=== PATIENT | male | born 1960 | race Caucasian/White ===

== ENCOUNTER 2022-06-26 14:47 | Outpatient (CLI) | payer OTHER, SELFPAY ==
--- NOTE | ~2022-06-26 | XR_ITS ---
EXAM: XR thoracic spine 2V DATE: 06/26/2022 15:21 HISTORY: M54.6 - Pain in thoracic spine, no recent injury . COMPARISON: None available. FINDINGS: Vertebral body alignment intact. Vertebral body heights preserved. Multilevel mild disc sp luzmaria narrowing and marginal osteophytosis. No traumatic malalignment or fracture. Visualized lung pare nchyma is clear. IMPRESSION: Multilevel mild thoracic degenerative disc disease. Reviewed, dictated and finalized at location K.
--- NOTE | ~2022-06-26 | XR_ITS ---
EXAM: XR lumbar spine 2-3V DATE: 06/26/2022 15:21 HISTORY: R52 - Pain, unspecified. Lower back pain no recent injury . COMPARISON: None available. FINDINGS: Mild lumbar scoliosis. 5 nonrib-bearing lumbar-type vertebral bodies. Pedicles intact. Norm al vertebral body alignment. Vertebral body heights preserved. Multilevel severe degenerative disc na rrowing and marginal osteophytosis. Vacuum phenomenon at all lumbar levels. Multilevel moderate facet sclerosis and hypertrophy, with interspinous narrowing. Aortic calcification without evident aneurys m. No fracture or dislocation. IMPRESSION: Multilevel severe degenerative lumbar disc disease. Multilevel moderate lumbar facet arth ropathy. Reviewed, dictated and finalized at location K. IMPRESSION: Multilevel severe degenerative lumbar disc disease. Multilevel mode rate lumbar facet arthropathy.
== END 2022-06-26 14:48 | disposition home or self-care (01) ==
PROVIDERS: PCP Emergency Medicine; Visit Provider Emergency Medicine
DX: M79.672 Pain in left foot (principal); M51.36 Other intervertebral disc degeneration, lumbar region; M51.34 Other intervertebral disc degeneration, thoracic region
CPT/HCPCS: 72070; 72100

== ENCOUNTER 2023-08-16 13:31 | Outpatient (CLI) | payer MEDICARE, OTHER, SELFPAY ==
--- NOTE | ~2023-08-16 | MR_ITS ---
EXAMINATION: MR cervical spine wo con DATE: 08/16/2023 14:52 INDICATION: Neck pain. TECHNIQUE: Magnetic resonance imaging (MRI) of the cervical spine was performed without intravenous c ontrast. COMPARISON: None FINDINGS: There is 2 mm retrolisthesis of C4 on C5, C5 on C6, and C6 on C7. Vertebral body heights ar e normal. There is moderately decreased disc height at C3-C4 and C4-C5 and severely decreased disc he ight at C5-C6 and C6-C7. The spinal cord signal intensity is normal. The following disc levels are sp ecifically discussed: C2-C3: There is a central protrusion. There is no uncovertebral joint osteoarthritis. There is modera te right and severe left facet joint osteoarthritis. There is mild left neural foraminal stenosis. Th ere is no central canal stenosis. C3-C4: The disc is bulging. There is severe bilateral uncovertebral joint osteoarthritis. There is mo derate bilateral facet joint osteoarthritis. There is mild bilateral neural foraminal stenosis. There is mild central canal stenosis. C4-C5: The disc is bulging. There is severe bilateral uncovertebral joint osteoarthritis. There is mi ld bilateral facet joint osteoarthritis. There is mild right and moderate left neural foraminal steno sis. There is moderate central canal stenosis with ventral and dorsal indentation of the spinal cord. C5-C6: The disc is bulging. There is severe bilateral uncovertebral joint osteoarthritis. There is mi ld bilateral facet joint osteoarthritis. There is mild bilateral neural foraminal stenosis. There is moderate central canal stenosis with ventral and dorsal indentation of the spinal cord. C6-C7: The disc is bulging. There is severe bilateral uncovertebral joint osteoarthritis. There is mo derate bilateral facet joint osteoarthritis. There is moderate right and mild left neural foraminal s tenosis. There is mild central canal stenosis. C7-T1: The disc does not extend beyond the endplate margin. There is no uncovertebral joint osteoarth ritis. There is moderate bilateral facet joint osteoarthritis. There is mild left neural foraminal st enosis. There is no central canal stenosis. IMPRESSION: 1. Severe cervical spondylosis. Reviewed, dictated and finalized at location A.
--- NOTE | ~2023-08-16 | MR_ITS ---
EXAMINATION: MR lumbar spine wo con DATE: 08/16/2023 14:54 INDICATION: Nontraumatic low back pain TECHNIQUE: Magnetic resonance imaging (MRI) of the lumbar spine was performed without intravenous con trast. Sequences included sagittal T2-weighted FSE, sagittal T2-weighted FS FSE, sagittal T1-weighted FSE, and axial T2-weighted FSE. COMPARISON: None FINDINGS: Minimal upper lumbar dextrocurvature and lower lumbar levocurvature. 2 mm retrolisthesis L2 on L3. Ve rtebral body heights are normal. Severe disc height loss with fibrofatty and fibrovascular degenerati ve endplate changes at L2-L3 and at the right side of L4-L5. Moderate disc height loss at L1-L2 and L 3-L4. Mild disc height loss at L5-S1. Bone marrow signal is otherwise normal. The conus medullaris te rminates at cephalad aspect of L1. There is normal signal in the caudal spinal cord. Paravertebral so ft tissues are unremarkable. The following disc levels are specifically discussed: T12-L1: Disc is mildly bulging. There is moderate bilateral facet joint osteoarthritis. There is no n eural foraminal stenosis. There is mild central canal stenosis. L1-L2: Disc is bulging with annular fissure and small inferiorly extending disc extrusion which moder ately narrows the left lateral recess extending 1 cm below level of the superior endplate of L2 and m easuring 8 x 5 mm in maximal transaxial dimensions. There is moderate bilateral facet joint osteoarth ritis. There is moderate left and mild to moderate right neural foraminal stenosis. There is mild felice tral canal stenosis. L2-L3: Disc is bulging with annular fissure. There is moderate bilateral facet joint osteoarthritis. There is moderate left and mild to moderate right neural foraminal stenosis. There is moderate centra l canal stenosis along with moderate narrowing of the left and right lateral recesses. L3-L4: Disc is bulging. There is moderate left and moderate to severe right facet joint osteoarthriti s. There is moderate right and mild to moderate left neural foraminal stenosis. There is mild central canal stenosis along with moderate narrowing of the left and right lateral recesses. L4-L5: Disc is bulging. There is mild left and moderate right facet joint osteoarthritis. There is mo derate left and moderate to severe right neural foraminal stenosis. There is mild central canal steno sis with narrowing of the lateral recesses, moderate on the right and mild on the left. L5-S1: Disc is bulging. There is severe bilateral facet joint osteoarthritis. There is moderate right and moderate left neural foraminal stenosis. There is no central canal stenosis. IMPRESSION: 1. Severe lumbar spondylosis. Reviewed, dictated and finalized at location A.
== END 2023-08-16 13:32 | disposition home or self-care (01) ==
PROVIDERS: PCP Emergency Medicine; Visit Provider Emergency Medicine
DX: M47.816 Spondylosis without myelopathy or radiculopathy, lumbar region (principal); M47.812 Spondylosis without myelopathy or radiculopathy, cervical region
CPT/HCPCS: 72141; 72148

== ENCOUNTER 2023-11-12 09:53 | Day surgery (SDC) | payer MEDICARE, OTHER, SELFPAY ==
[2023-10-31 13:26] VITALS: BMI 25.1
--- NOTE | ~2023-11-12 | XR_ITS ---
EXAMINATION: XR fluoroscopy no charge DATE: 11/12/2023 11:55 CDT INDICATION: THADDEUS L3-4,L4-5 TRANSFORAMINAL EPI INJ . TECHNIQUE: 9 fluoroscopic images of the lumbar spine were obtained during bilateral L3-4 and L4-5 tra nsforaminal epidural injections, performed by Jarvis Guadalupe MD. I was not present during the proce dure. Fluoroscopy exposure time was 25.3 seconds. Air Kerma 5.20 mGy. COMPARISON: None FINDINGS/IMPRESSION: Fluoroscopic documentation of bilateral L3-4 and L4-5 transforaminal epidural injections. Please refe r to the operative note for complete procedural details . Reviewed, dictated and finalized at location K.
[2023-11-12 11:16] VITALS: BMI 25.0
[2023-11-12 11:21] VITALS: BP 138/97; PULSE 64; RESP 20; TEMP 37; O2SAT 100
--- NOTE | 2023-11-12 11:45 | WPDHPUPDATE1 ---
History and Physical Update Update Date/Time: 11/12/23 11:45 History and Physical has been reviewed, including an updated exam of the patient. There are NO changes in the patient's condition. Risks, benefits, and alternatives have been discussed and questions answered. Patient agrees to proceed with procedure.
--- NOTE | 2023-11-12 11:46 | W.PM.PROC2 ---
Procedure Note - Detailed Date of Procedure 11/12/23 Pre-op Diagnosis Lumbosacral Radiculopathy Post-op Diagnosis Same Procedure Performed bilateral Lumbar Transforaminal Epidural Steroid Injection under Fluoroscopic Guidance and with Contrast Control at L4-5, L5-S1. Surgeon Jarvis Guadalupe MD Anesthesia Local Description of Procedure INFORMED CONSENT: Risks, benefits and alternatives to the procedure were discussed in detail with the patient who expressed explicit understanding and consent to proceed. Patient was informed verbally and in written form regarding the risks associated with the procedure including the low risk of serious infection, bleeding/bruising, allergic reaction, nerve or organ injury, paralysis, procedural site pain or discomfort, worsening pain and/or mobility, failure to treat and/or disfigurement. The patient expressed explicit understanding and consent to proceed. All materials required for the procedure were available prior to procedure start. Site and side was marked prior to procedure and confirmed in the presence of the patient. PROCEDURE IN DETAIL: The patient was brought to the procedural suite and placed in the prone position. Patient was made comfortable with use of pillows under the head/chest, hips and ankles. Skin overlying the injection site was prepared broadly with ChloraPrep applicator and draped in a sterile manner. Aseptic technique was employed throughout. The endplates of the vertebral body at the site of interest were aligned in the AP view. Ipsilateral oblique angulation was utilized to better visualize the neuroforamen of interest. Local anesthesia was established by infiltration with approximately 5 mL of 2% lidocaine via a 1-1/2 inch 27-gauge needle. A 22-gauge 3.5 inch Niesha (pencil point) spinal needle was advanced until the needle approached the 6 o'clock position on the pedicle just superior to the exiting nerve root. on the right at L4-5. Lateral view was utilized to confirm appropriate position of the needle tip within the superior and posterior portion of the respective foramen. In an AP view, 0.25 mL of Dotarem contrast medium was injected after negative aspiration for CSF, blood or other bodily fluid, showing appropriate neurogram without evidence of intravascular or intrathecal spread of contrast. Digital subtraction imaging was used with an additional 0.25ml of the same contrast medium to confirm absence of intravascular contrast spread. A 1mL solution containing 3 mg of betamethasone into 2.0% preservative-free lidocaine was injected after negative repeat aspiration. Appropriate spread of the injectate was confirmed with washout of previously injected contrast. No parasthesias were elicited. Needle was removed completely intact without difficulty. The same exact procedure was repeated for all remaining levels on the ipsilateral side, right L3-4 neural foramen, modified as necessary to accommodate for the new target location with identical findings and results and no evidence of complication. The same exact procedure was repeated for all remaining levels on the contralateral side, left L3-4, L4-5 neural foramen, modified is necessary to accommodate for the new target location on contralateral side with identical findings and results with no evidence of complication. Images were saved and documented in the patient chart. Patient's skin was cleaned and sterile bandage applied. The patient tolerated the procedure well. The patient was transported to the recovery area in stable condition where they were observed for an appropriate amount of time prior to discharge, without evidence of complication. The patient was instructed to avoid excessive activity for the next 48 hours, including climbing and frequent use of stairs. Showers only for 48 hours. They were instructed not to drive or operate heavy machinery for 24 hours. They are to monitor for severe headaches, fevers, chills, night sweats, erythema/
--- NOTE | 2023-11-12 11:55 | SUR.PREOP ---
2561 Dr Pereira asked this RN to remove gadolinium contrast. Dr pereira states pt has never been exposed to that contrast.
[2023-11-12 11:59] VITALS: BP 154/90; PULSE 61; RESP 20; O2SAT 97
[2023-11-12 12:05] VITALS: BP 141/88; PULSE 57; RESP 20; O2SAT 100
[2023-11-12 12:10] VITALS: BP 141/91; PULSE 58; RESP 20; O2SAT 100
[2023-11-12] MEDS: BETAMETHASONE SODIUM PHOSPHATE PF INJ 6 MG/ML VIAL 12 MG INFILTRATE (12:11)
[2023-11-12] MEDS: LIDOCAINE HCL 2% PF INJ 5 ML VIAL 2 ML INFILTRATE (12:11)
[2023-11-12] MEDS: LIDOCAINE HCL 1% PF INJ 5 ML VIAL 2 ML AFFCTD EYE (12:11)
[2023-11-12 12:16] VITALS: BP 136/97; PULSE 64; RESP 18; O2SAT 100
--- NOTE | 2023-11-12 12:40 | SUR.PHASEII ---
1220; DR RAMIREZ NOTIFIED OF PT'S C/O SOME NUMBNESS TO RT ANKLE/FOOT . PT DOES HAVE SENSATION TO TOUCH TO RT ANKLE/FOOT. DR RAMIREZ STATED ITS FROM THE LOCAL ANESTHETIC INJECTED IN THE BACK,. PT AND SPOUSE MADE AWARE.
--- NOTE | 2023-12-20 10:20 | PC.NURSE ---
Pt scheduled for procedure with Dr. Guadalupe 12/24/23. Pre op testing was completed by pt on 12/16/23 with exception of PT/INR and PTT. Intrinsic-ID showed these tests cancelled. Contacted lab and was informed pt declined these labs as they were not covered by Medicare and he would be charged. Contacted Mayte at Dr. Guadalupe's office 12/19/23 to inform/send Dr. Guadalupe a message re above and see if pt this was OK with Dr. Guadalupe or if the pt did need these labs. Mayte returned my call 12/20/[address] Guadalupe's response which was that If pt is not on an anticoagulant and has no history of easy bleeding/bruising then PT/INR and PTT can be omitted. Called pt and he confirmed no anticoagulant or history of easy bleeding/bruising.
== END 2023-11-12 12:33 | disposition home or self-care (01) ==
PROVIDERS: PCP Emergency Medicine; Visit Provider Anesthesiology Pain Medicine
PROC: (CPT 64483; principal; 2023-11-12 11:15)
DX: M54.17 Radiculopathy, lumbosacral region (principal)
CPT/HCPCS: 64483 ×2; 99199

== ENCOUNTER 2023-12-16 12:22 | Outpatient (CLI) | payer MEDICARE, OTHER, SELFPAY ==
--- NOTE | ~2023-12-16 | XR_ITS ---
EXAMINATION: XR chest 2V Exam Date/Time: 12/16/2023 13:05 CDT HISTORY: PRE-OP EXAMINATION, HX SMOKING, NO CHEST COMPLAINTS Comparison: 10/05/2009. RESULT: Lines, tubes, and devices: None. Lungs and pleura: Increased volumes. Hemidiaphragm flattening and increased AP diameter. Bibasilar sc arring. No focal consolidation, pleural effusion, or pneumothorax. Cardiomediastinal silhouette: Stable. Dilated central pulmonary arteries. Other: No acute osseous or upper abdominal finding. IMPRESSION: No acute cardiopulmonary process. Emphysematous change. Findings suggestive of pulmonary arterial hyp ertension. Reviewed, dictated and finalized at location K. IMPRESSION: No acute cardiopulmonary process. Emphysematous change. Findings suggestive of pulmonary arterial hypertension.
--- NOTE | 2023-12-16 12:50 | ECG_ITS ---
Test Date: 2023-12-16 12:55:50 Measurements Intervals Polaris Rate: P: NV: QRS: QRSD: T: QT: QTc: Interpretive Statements SINUS RHYTHM ANTEROSEPTAL INFARCT, AGE INDETERMINATE BASELINE ARTIFACT- V4-V6 ABNORMAL ECG Electronically Signed On 12-16-2023 14:29:08 CDT by Edmar Garcia D.O.
[2023-12-16 13:18] LABS: Hematocrit 46.2 % (42.0-52.0); Hemoglobin 15.9 g/dL (14.0-18.0); Mean Corpuscular HGB Conc 34.4 g/dl (32-36); Mean Corpuscular Hemoglobin 32.4 pg (26-34); Mean Corpuscular Volume 94.1 fl (80-100); Mean Platelet Volume 10.5 fl (7.4-10.4); Platelet Count Result 212 k/mm3 (150-375); Red Blood Count 4.91 M/mm3 (4.6-6.20); Red Cell Distribution Width 12.8 % (11.5-14.5); White Blood Count 9.7 K/mm3 (4.5-10.0)
[2023-12-16 13:28] LABS: Alanine Aminotransferase 30 U/L (6-50); Albumin Level 4.3 g/dL (3.5-5.1); Alkaline Phosphatase 77 U/L (38-126); Anion Gap 8 mmol/L (4-12); Aspartate Amino Transferase 33 U/L (17-59); Bilirubin,Total 0.4 mg/dL (0.2-1.3); Blood Urea Nitrogen 18 mg/dL (9-20); Calcium 9.1 mg/dL (8.4-10.2); Carbon Dioxide 28 mmol/L (22-30); Chloride 102 mmol/L (98-107); Estimated Glomerular Filt Rate > 60; Glucose 97 mg/dL (65-110); Potassium 3.3 mmol/L (3.4-5.0); Sodium 138 mmol/L (137-145)
== END 2023-12-16 12:23 | disposition home or self-care (01) ==
PROVIDERS: PCP Emergency Medicine; Visit Provider Anesthesiology Pain Medicine
DX: Z01.818 Encounter for other preprocedural examination (principal); R94.31 Abnormal electrocardiogram [ECG] [EKG]
CPT/HCPCS: 36415; 71046; 80053; 85027; 93005

== ENCOUNTER 2023-12-24 05:51 | Day surgery (SDC) | payer MEDICARE, OTHER, SELFPAY ==
[2023-12-06 11:31] VITALS: BMI 25.1
--- NOTE | 2023-12-23 17:09 | WPDANESEPPF ---
Anes - Initial Pre Proc Eval Procedure: Operation Date: 12/24/23 07:30 Proposed Procedures p Bilateral L3-4, L4-5 Minimally Invasive Lumbar Decompression under Fluoroscopic Guidance, Possible Epidurogram - Jarvis Guadalupe MD Date/Time: 12/23/23 17:09 Surgeon: Jarvis Guadalupe MD Pre Op Diagnosis: Lumbar Stenosis Patient Data Age: 63 Gender: M Height: 1.83 m Weight: 84 kg Allergies Allergy/AdvReac Type Severity Reaction Status Date / Time Iodinated Contrast Media Allergy Intermediate Vomiting Verified 12/24/23 06:14 Home Medications Medication Instructions Recorded Confirmed Type aspirin 81 mg chewable tablet 81 mg PO DAILY PRN Back Pain 10/31/23 12/24/23 History naproxen sodium 220 mg tablet 800 mg PO DAILY PRN Pain 10/31/23 12/24/23 History (Aleve) carisoprodol 250 mg tablet (Soma) 250 mg PO TID PRN muscle pain #30 11/12/23 12/24/23 Rx tabs hydrocodone 5 mg-acetaminophen 325 1 tablet PO Q6-8H PRN pain 7 days 12/24/23 Rx mg tablet #20 tabs Patient hx anesthesia problems: none Family hx anesthesia problems: none Results Review: All pre-operative results and documents have been reviewed as part of the pre-operative evaluation. [facility] Past Medical History Medical History (Updated 12/24/23 @ 06:27 by Jarvis Guadalupe MD) Arthritis Atrial fibrillation Callus between toes Chronic pain Compound fracture (~1986) Foot pain, left Thyroid disorder Surgical History Surgical History H/O cardiac radiofrequency ablation (~2015) Family History Family History Other Alcoholism Leukemia Social History Social History Smoking packs per day: 1 Smoking cigarettes per day: 20.0 Years smoked: 50 Smoking pack-years: 50.00 Smoking status: Former smoker Tobacco type: cigarettes Second hand tobacco smoke exposure: Yes Alcohol intake: never Substance use: never Substance use type: does not use Do You Feel Safe in your Home?: Yes Lack of Transportation: No Lack of Food: Never True Current Housing: I Have Housing Concerned About Future Housing: No Difficulty Paying Gas/Electric Bills: No Difficulty Paying for Meds: No Currently Unemployed: No Education: Master's Degree or Higher Difficulty w/ Childcare or Family Care: No Living arrangements: with family Gender identity (if verbalized by the patient): Male Sexual Orientation (if Verbalized by the Patient): Straight or Heterosexual Spiritual care concerns: No Anes - Eval Final PreProcedure Day of Procedure 12/23/23 17:09 Patient weight: overweight Heart: regular rate and rhythm Lungs: clear to auscultation Airway: Mallampati scale class II Neurological: alert and oriented Last oral intake: >/= 8 hours ASA classification: III Emergent: no Anesthetic plan: proceed Anesthesia type and monitoring: general ETT and standard monitoring Results Review: All pre-operative results and documents have been reviewed as part of the pre-operative evaluation. Informed Consent: The patient's anesthetic plan and its attendant risks and benefits were discussed with the patient/family/POA. Questions were solicited and answers provided to the satisfaction of the patient/family/POA.
--- NOTE | ~2023-12-24 | XR_ITS ---
EXAMINATION: XR fluoroscopy no charge DATE: 12/24/2023 08:29 INDICATION: Lumbar spinal stenosis with neurogenic claudication. TECHNIQUE: 20 intraoperative fluoroscopic views of the lumbar spine were obtained. I was not present. Fluoroscopy exposure time was 138 seconds. COMPARISON: None. FINDINGS: There is severe lumbar spondylosis. Instruments overlie the lumbar spine for lumbar decompr ession. IMPRESSION: 1. Severe lumbar spondylosis. Reviewed, dictated and finalized at location A.
[2023-12-24 06:15] VITALS: BP 105/75; PULSE 65; RESP 16; TEMP 36.6; O2SAT 96
[2023-12-24] MEDS: LACTATED RINGERS 1,000 ML 30 ML IV CONT (06:24)
--- NOTE | 2023-12-24 06:24 | WPDHPUPDATE1 ---
History and Physical Update Update Date/Time: 12/24/23 06:24 History and Physical has been reviewed, including an updated exam of the patient. There are NO changes in the patient's condition. Risks, benefits, and alternatives have been discussed and questions answered. Patient agrees to proceed with procedure.
--- NOTE | 2023-12-24 06:31 | W.PM.PROC2 ---
Procedure Note - Detailed Date of Procedure 12/24/23 Pre-op Diagnosis Lumbar Spinal Stenosis w/ Neurogenic Claudication Post-op Diagnosis Same Procedure Performed Bilateral Minimally Invasive Lumbar Decompression (MILD) at L3-4, L4-5 under Fluoroscopic Guidance. Surgeon Jarvis Guadalupe MD Bi Tri Operator None Anesthesia Other ([Moderate IV sedation/MAC] with local anesthetic infiltration in the prone position) Description of Procedure INFORMED CONSENT: Risks, benefits, and alternatives to the procedure were discussed in detail with the patient who expressed explicit understanding and consent to proceed. Risks discussed with the patient included but were not limited to risk of serious local or systemic infection, bleeding/bruising, epidural hematoma, dural puncture or tear resulting in CSF leak and acute or chronic post-dural puncture headache, scarring/deformity, immediate or delayed allergic reaction, decreased mobility, failure to treat pain, inadvertent neurologic injury resulting in increased pain, weakness/paralysis or numbness, inadvertent organ injury, need for additional surgery, allergic reaction, heart attack, stroke, seizure, coma, . Anesthetic risks were also briefly discussed by myself and the refrigeration engine operator. The patient expressed understanding and consent to proceed, agreeing that potential benefits outweigh risk of harm. All materials required for the procedure were immediately available prior to procedure start. Site and side were confirmed with the patient, compared carefully to the patient chart and consent, and marked prior to transport to the operating room. Appropriate time out procedure was performed per protocol prior to procedure start. PROCEDURE IN DETAIL: The patient was brought to the operative suite and placed in the supine position. Appropriate ASA standard monitors were attached. Anesthesia was initiated without difficulty or event. Eyes were protected. Patient was transitioned to the prone position. Pressure points were padded with joints in neutral position. When appropriate, breasts and genitals were evaluated and protected. Eyes were checked and were free from undue pressure. Skin overlying the procedure site was marked with sterile marker. Surgical area was prepared in a typical sterile fashion with ChloraPrep and allowed to dry for at least 3 minutes prior to sterilely draping the surgical site. The lumbar spine was identified in the AP fluoroscopic view with slight cephalad tilt perfectly aligning the endplates at the targeted levels with spinous processes bisecting the transpedicular plane. After identifying the intended incision site approximately 1.5 levels inferior to the level of interest, the area was anesthetized by infiltration with no more than 10ml of a 1:1 admixture of 0.5% PF bupivacaine with epinephrine and 2% PF lidocaine with epinepherine via a 27-gauge needle after negative aspiration. A 22-gauge spinal needle was used to provide additional and adequate local anesthesia to the level of the interspinous ligament, ligamentum flavum and the periosteum of the lamina at the intended treatment levels. In the AP view, a #11 scalpel blade was used to create a single stab incision at the intended incision site on the targeted side. The Vertos MILD kit was opened and the included cannula and trocar assembly was advanced through the incision to contact the midportion of the right lamina just adjacent to the spinous process at L5. Once seated, the lateral view was used to gauge depth demonstrating the most anterior tip of the trocar posterior to the epidural space at all times. The food service supervisor-provided cannula stabilizer was placed over the trocar flush to the patient's lumbar flank. Cannula obturator with handle was removed. Included depth guide was then attached to the insertion port on the cannula and set to an intitial depth of 15 mm. The bone rongeur was advanced to the depth of the lumbar lamina at the target
[2023-12-24] MEDS: ceFAZolin SODIUM 2 GM/20 ML SW SYRINGE IV PUSH (07:39)
[2023-12-24] MEDS: LIDOCAINE HCL 2% PF INJ 5 ML VIAL INFILTRATE (07:55)
[2023-12-24] MEDS: BUPIVACAINE/EPINEPHRINE 0.5% 10 ML VIAL 5 ML INFILTRATE (07:55)
[2023-12-24 08:36] VITALS: BP 135/88; PULSE 65; RESP 14; TEMP 36.2; O2SAT 97
[2023-12-24 08:50] VITALS: BP 139/90; PULSE 65; RESP 16; O2SAT 100
--- NOTE | 2023-12-24 08:57 | SUR.PHASEI ---
PT AWAKE AND ALERT. TALKATIVE. DENIES PAIN. SHAVONNE
--- NOTE | 2023-12-24 09:01 | SUR.PHASEI ---
PT SITTING UPRIGHT, EATING ICE CHIPS, TALKATIVE.
[2023-12-24 09:05] VITALS: BP 126/87; PULSE 65; RESP 16; O2SAT 97
[2023-12-24 09:10] VITALS: BP 123/88; PULSE 64; RESP 16; O2SAT 100
[2023-12-24 09:30] VITALS: BP 122/83; PULSE 64; RESP 16; O2SAT 99
--- NOTE | 2023-12-24 09:35 | WPDANESPN ---
Anes - Prog Note Post-Op Date/Time: 12/24/23 09:35 Cardiovascular status: normal Respiratory status: normal Airway patency: baseline Mental status: baseline Post-Op hydration status: normal Vital Signs: Last Vital Signs Temp 36.2 C L 12/24/23 08:36 Pulse 64 12/24/23 09:10 Resp 16 12/24/23 09:10 BP 123/88 12/24/23 09:10 Pulse Ox 100 12/24/23 09:10 O2 Del Method Room Air 12/24/23 09:10 O2 Flow Rate 6 12/24/23 08:50 Pain Score (VAS): 0 I/O: Intake & Output 12/23/23 12/24/23 12/24/23 23:59 07:59 15:59 Intake Total 100 Balance 100 Post-procedural complaints: none Patient Feedback: Patient satisfied with anesthetic care. Other Findings: Patient vital signs back to baseline. Patient denies nausea and vomiting. Patient's pain under control. Patient OK for discharge.
== END 2023-12-24 09:44 | disposition home or self-care (01) ==
PROVIDERS: PCP Emergency Medicine; Visit Provider Anesthesiology Pain Medicine
PROC: (CPT 0275T; principal; 2023-12-24 07:30)
DX: M48.062 Spinal stenosis, lumbar region with neurogenic claudication (principal); Z00.6 Encounter for examination for normal comparison and control in clinical research program
CPT/HCPCS: 0275T; 99199

== ENCOUNTER 2024-02-03 08:12 | Outpatient (CLI) | payer MEDICARE, OTHER, SELFPAY ==
[2024-02-03 09:29] LABS: Hematocrit 49.1 % (42.0-52.0); Hemoglobin 17.2 g/dL (14.0-18.0); Mean Corpuscular Hemoglobin 32.5 pg (26-34); Mean Corpuscular Volume 92.8 fl (80-100); Mean Platelet Volume 10.4 fl (7.4-10.4); Platelet Count Result 221 k/mm3 (150-375); Red Blood Count 5.29 M/mm3 (4.6-6.20); White Blood Count 7.9 K/mm3 (4.5-10.0)
[2024-02-03 09:44] LABS: Alanine Aminotransferase 30 U/L (6-50); Albumin Level 4.7 g/dL (3.5-5.1); Alkaline Phosphatase 86 U/L (38-126); Anion Gap 8 mmol/L (4-12); Aspartate Amino Transferase 35 U/L (17-59); Bilirubin,Total 0.6 mg/dL (0.2-1.3); Blood Urea Nitrogen 17 mg/dL (9-20); Calcium 9.7 mg/dL (8.4-10.2); Carbon Dioxide 30 mmol/L (22-30); Chloride 102 mmol/L (98-107); Estimated Glomerular Filt Rate > 60; Glucose 101 mg/dL (65-110); Potassium 4.6 mmol/L (3.4-5.0); Sodium 140 mmol/L (137-145)
[2024-02-03 11:20] LABS: Prothrombin Time 13.9 Seconds (11.1-14.7)
[2024-02-03 11:21] LABS: Partial Thromboplastin Time 31.7 Seconds (22.3-36.8)
== END 2024-02-03 08:13 | disposition home or self-care (01) ==
PROVIDERS: PCP Emergency Medicine; Visit Provider Anesthesiology Pain Medicine
DX: Z01.818 Encounter for other preprocedural examination (principal)
CPT/HCPCS: 36415; 80053; 85027; 85610; 85730

== ENCOUNTER 2024-02-04 05:56 | Day surgery (SDC) | payer MEDICARE, OTHER, SELFPAY ==
[2024-02-04] VITALS (7 sets, daily range): BP systolic 112–151; BP diastolic 78–100; PULSE 54–63; RESP 11–18; TEMP 35.8–36.4; O2SAT 95–100
--- NOTE | ~2024-02-04 | XR_ITS ---
EXAMINATION: XR fluoroscopy no charge DATE: 02/04/2024 7:25 CDT INDICATION: PERC TRANSPEDICULAR INTRAOSSEOUS BASIVERTEBRAL NERVE ABLATIO . TECHNIQUE: 53 fluoroscopic images and 13 cine clips of the lumbar spine were obtained during percutan eous transpedicular intraosseous base the vertebral nerve ablation, performed by Jarvis Guadalupe MD. I was not present during the procedure. Fluoroscopy exposure time was 126 seconds. Air Kerma 52.10 m Gy. COMPARISON: None FINDINGS/IMPRESSION: Fluoroscopic documentation of percutaneous transpedicular intraosseous base the vertebral nerve ablat ion. Please refer to the operative note for complete procedural details . Reviewed, dictated and finalized at location K.
--- NOTE | 2024-02-04 04:39 | WPDHPUPDATE1 ---
History and Physical Update Update Date/Time: 02/04/24 04:39 History and Physical has been reviewed, including an updated exam of the patient. There are NO changes in the patient's condition. Risks, benefits, and alternatives have been discussed and questions answered. Patient agrees to proceed with procedure.
--- NOTE | 2024-02-04 04:42 | P.OP_ITS ---
Procedure Note - Detailed Date of Procedure 02/04/24 Pre-op Diagnosis Vertebrogenic Low Back Pain Post-op Diagnosis Same Procedure Performed Percutaneous transpedicular intraosseous basivertebral nerve thermal radiofrequency ablation (Intracept procedure) at L2, L3, L4, L5 under fluoroscopic guidance. Surgeon Jarvis Guadalupe MD Immigration Paralegal None. Anesthesia General (GETA] in the [prone] position with infiltration of local anesthetic. 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 They are significantly limited in their daily and/or work-related activities as a result, including sitting, standing, lifting/carrying and sleeping, with failure to respond to and/or tolerate extensive efforts at more conservative management (i.e. oral and topical analgesics including NSAIDs, acetaminophen and opioids, Physical Therapy and modalities, time/rest, interventional procedures/corticosteroid injections) for greater than 6 months prior to today's procedure establishing medical necessity for this well-studied and FDA-approved pain-relieving procedure. INFORMED CONSENT: Procedure was discussed in detail with the patient at a previous visit and at the time of surgery. During this discussion, the risks, benefits, and alternatives to the procedure, including doing nothing, were thoroughly described to the patient, who expressed explicit understanding and consent to proceed. Specific risks discussed with the patient included, but were not limited to the risk of serious local or systemic infection, skin burn/scarring, major or minor bleeding/bruising, allergic reaction to medi cations or materials, inadvertent lung or other organ injury, new or worsening spinal fracture, inadvertent thermal or mechanical nerve or spinal cord injury resulting in increased pain, weakness, numbness or loss of bowel or bladder control, the need for repeat or additional surgery, inadvertent dural puncture resulting in acute or chronic CSF leak and post-dural puncture headache, failure to treat pain, and risks associated with general anesthesia in the prone position including eye, dental, joint, nerve, spine or soft tissue injury/pain related to positioning, heart attack, respiratory failure, aspiration, pneumonia, DVT/PE or thrombosis, hemorrhagic or ischemic stroke, hypoxia, hypo- or hypertension, seizure, coma and . Patient understands these risks and agrees that the opportunity for benefit outweighs the potential risk of harm. Procedure specific informed consent form was read, reviewed, signed by the patient and surgeon and witnessed in the pre-operative area. All pertinent questions were asked and answered to the patient's satisfaction. Surgical site was pre-treated with chlorhexidine wipes. All materials required for the procedure were available and site and side of procedure was marked prior to procedure start. Appropriate timeout was conducted by all participants in the OR (patient's ID, procedure to be performed, procedure site and side, allergies and appropriate medications including pre-operative antibiotics were verified) prior to incision. PROCEDURE IN DETAIL: After full informed consent and adequate IV access was obtained without difficulty; the patient was escorted to the procedural suite. ASA standard monitors were applied and utilized throughout the case. Prophylactic antibiotics were administered prior to procedure start. GETA was initiated without difficulty or event. Eyes were protected. Patient was converted to the prone position in optimal flexion using pillows under the abdomen, hips and ankles. Pressure points were padded, cervical spine and joints were placed in neutral position. Eyes, breasts and genitals were evaluated and protected as appropriate. The thoracolumbar spine to the sacrum was prepared in the usual manner using alcohol scrub followed by broad application of ChloraPrep, and allowed to dry completely for over 3 minutes. Surgical site and C-arm was sterilely draped in the typical fashion. Aseptic technique and strict fluoroscopic guidance was utilized throughout. Fluoroscope was moved into position to visualize the vertebral bodies of interest in the AP and lateral plane, obtaining true linear projections of the endplates at each level, and was rotated in the ipsilateral oblique view approximately 35 degrees from true AP to visualize the vertebrae with respective ipsilateral facet joints visualized bisecting the superior disk space at the midpoint of the vertebral body. The superolateral border of the pedicle of each level treated was identified. After adequate general anesthesia was confirmed, the skin entry point was located and infiltrated with an adequate amount of a 1:1 admixture of 0.5% preservative free bupivacaine and 2.0% preservative-free lidocaine using a 27 gauge 1.5-inch hypodermic needle after negative aspiration for blood or bodily fluid. Appropriate introducer cannula trajectory was identified in the AP, oblique and lateral views, and local anesthesia was extended to periosteum in a similar fashion at each level treated using a 3.5 inch, 22-gauge Quincke spinal needle. A stab skin decision was made with a #11 scalpel blade and an 8-gauge introducer cannula with beveled tip was then introduced through the skin, subcutaneous tissue and paraspinal muscle until contact was made with the bony surface of the pedicle at the target level. Appropriate position was confirmed in both the AP and lateral views. Using a 24- ounce surgical mallet, the trocar was advanced through the right pedicle to the posterior aspect of the vertebral body using a combination of AP and lateral views to ensure appropriate travel through the pedicle without breach of its medial wall or entry into the epidural/neuroforaminal space. Once the trocar had entered the posterior aspect of the L5 vertebral body, the trocar was removed from the cannula and the curved cannula assembly was inserted followed by replacement of the original straight stylette with the Nitinol J ? stylette without difficulty. The wingnut on the device was rotated counterclockwise to its endpoint permitting excursion of the J ? stylette. The curved cannula assembly was then advanced under intermittent fluoroscopic guidance, using the surgical mallet, in 1 to 2 mm increments with observed travel anteriorly and medially through the vertebral body in both the AP and lateral views. When necessary, the J-stylette was intermittently removed and replaced with the straight stylette during advancement to reach the basivertebral nerve target near the center point of the vertebral body. Target was reached when the tip of the stylette was noted to be a minimum of 1 cm anterior to the posterior wall and approximately 30 to 50% of the posterior to anterior diameter of the targeted vertebral body and at the midpoint of the distance between the superior and inferior endplates, with tip of the stylette crossing midline as represented by the spinous process in the carefully aligned AP projection. J- stylette was then removed and the bipolar radiofrequency probe was connected to the generator and inserted into the introducer cannula until the proximal and distal electrodes straddled the midpoint of the vertebral body. The wingnut was then rotated clockwise to retract the PEEK sleeve and expose the proximal electrode on the radiofrequency probe. The basivertebral nerve was then ablated through activation of the probe and generator. At each level treated, ablation was performed at 85 degrees centigrade for 7 minutes using [facility]'s RFG standard intraosseous ablation algorithm while simultaneously monitoring for any sign of motor or sensory nerve stimulation. While ablative lesioning was progressing to completion at the initial level, the fluoroscope was adjusted to successively visualize the target of entry at the superolateral aspect of the pedicle at each additional level treated, ( L2, L3, L4), with each vertebral body subsequently and sequentially accessed and target nerve ablated in a similar manner modified only to accommodate for specific level, location and anatomical variation, alternating the site and side of entry to facilitate cannula placement. This was achieved in all cases without difficulty. Location of each entry point, final cannula and probe position was documented by fluoroscopy in the AP and lateral views with respective images recorded in the patient's chart. In all cases, once intraosseous access was obtained, needle tip remained intraosseous without violation of the pedicular wall, vertebral wall, neuroforamen and/or spinal canal. Once all ablations were complete, instruments were removed from the vertebral bodies without difficulty under direct visualization and fluoroscopic guidance. Pressure was held at each entry site until hemostasis was confirmed. Skin was cleaned with alcohol -soaked gauze and dried with a sterile towel. Surgical wounds were then closed with mastisol and Steri-Strips placed in a crisscrossing fashion and covered with a sterile Telfa and Tegaderm dressing. The patient was returned to the supine position and anesthesia was reversed without difficulty or event. The patient tolerated the procedure well with no evidence of complication. Patient was transported to the recovery room where they were monitored for an appropriate period of time prior to discharge. During this time, the patient demonstrated no evidence of new neurologic symptom or injury, uncontrolled pain, postsurgical or post anesthetic complication. The patient was eventually discharged with both written and verbal instructions for appropriate wound care and activity restriction and with instructions to contact the office or report directly to the emergency department if no immediate response or if after hours with any signs of urgent or emergent complication including but not limited to excessive discharge or bleeding, new focal or diffuse neurologic weakness, numbness or other sensory change in the upper or lower extremities, severe headaches, intractable nausea/vomiting, fevers, chills, night sweats, increasing pain or loss of bowel or bladder control. Patient will otherwise follow-up in person at the clinic in 7 to 10 days for wound check and reevaluation. COMPLICATIONS: None. COMMENTS: None. IV FLUIDS: On Chart. EBL: 10 ml. DRAINS: None. PACKING: None. SPECIMEN: None. Pathology None sent Complications No immediate complications Condition Stable Disposition PACU [facility] Billing Surgery - Charge Forward: Surgery Billing
[2024-02-04] MEDS: LACTATED RINGERS 1,000 ML 30 ML IV CONT (06:49)
--- NOTE | 2024-02-04 06:55 | P.PNAN_ITS ---
Anes - Initial Pre Proc Eval Procedure: Operation Date: 02/04/24 07:30 Proposed Procedures p Percutaneous Transpedicular Intraosseous Basivertebral Nerve Ablation L2, L3, L4, L5 under Fluoroscopic Guidance - Jarvis Guadalupe MD Date/Time: 02/04/24 06:55 Surgeon: Jarvis Guadalupe MD Pre Op Diagnosis: Vertebrogenic Low Back Pain Patient Data Age: 63 Gender: M Height: 1.83 m Weight: 84.4 kg Last Vital Signs Temp 36.4 C 02/04/24 06:30 Pulse 60 02/04/24 06:30 Resp 18 02/04/24 06:30 BP 112/78 02/04/24 06:30 Pulse Ox 95 02/04/24 06:30 O2 Del Method Room Air 02/04/24 06:30 Allergies Allergy/AdvReac Type Severity Reaction Status Date / Time Iodinated Contrast Media Allergy Intermediate Vomiting Verified 02/04/24 06:40 Home Medications Medication Instructions Recorded Confirmed Type naproxen sodium 220 mg tablet 800 mg PO DAILY PRN Pain 10/31/23 02/04/24 History (Aleve) carisoprodol 250 mg tablet (Soma) 250 mg PO TID PRN muscle pain #30 12/26/23 02/04/24 Rx tabs gabapentin 300 mg capsule 300 mg PO TID #90 caps 01/14/24 02/04/24 Rx Patient hx anesthesia problems: none Family hx anesthesia problems: none Results Review: All pre-operative results and documents have been reviewed as part of the pre- operative evaluation. [facility] Past Medical History Medical History (Updated 02/04/24 @ 06:56 by Quinton Cotton MD) Arthritis Atrial fibrillation Callus between toes Chronic pain Compound fracture (~1986) Elevated cholesterol Foot pain, left Fracture of left leg Thyroid disorder Surgical History Surgical History H/O cardiac radiofrequency ablation (~2015) Family History Family History Other Alcoholism Leukemia Social History Social History Smoking packs per day: 1 Smoking cigarettes per day: 20.0 Years smoked: 50 Smoking pack-years: 50.00 Smoking status: Current every day smoker Tobacco type: cigarettes Second hand tobacco smoke exposure: Yes Alcohol intake: former Substance use: never Substance use type: does not use Do You Feel Safe in your Home?: Yes Lack of Transportation: No Lack of Food: Never True Current Housing: I Have Housing Concerned About Future Housing: No Difficulty Paying Gas/Electric Bills: No Difficulty Paying for Meds: No Currently Unemployed: No Education: Master's Degree or Higher Difficulty w/ Childcare or Family Care: No Living arrangements: with family Gender identity (if verbalized by the patient): Male Sexual Orientation (if Verbalized by the Patient): Straight or Heterosexual Spiritual care concerns: No Anes - Eval Final PreProcedure Day of Procedure 02/04/24 06:55 Patient weight: normal Heart: regular rate and rhythm Lungs: clear to auscultation Airway: Mallampati scale class II Neurological: alert and oriented Last oral intake: >/= 8 hours ASA classification: III Emergent: no Anesthetic plan: proceed Anesthesia type and monitoring: general ETT and standard monitoring Results Review: All pre-operative results and documents have been reviewed as part of the pre- operative evaluation. Informed Consent: The patient's anesthetic plan and its attendant risks and benefits were discussed with the patient/family/POA. Questions were solicited and answers provided to the satisfaction of the patient/family/POA.
[2024-02-04] MEDS: ceFAZolin 2 GM/D5W 50 ML 2 GM/50 ML BAG IVPB (07:35)
[2024-02-04] MEDS: BUPivacaine HCL 0.5% 10 ML AMP INFILTRATE (07:49)
--- NOTE | 2024-02-04 07:58 | SUR.OPER ---
[employer] RF generator brought by [id number]
--- NOTE | 2024-02-04 08:36 | SUR.OPER ---
L2, L3, L4, L5 ablated at 7min each
[2024-02-04] MEDS: LIDOCAINE HCL 2% PF INJ 5 ML VIAL 9 ML INFILTRATE (08:41)
[2024-02-04] MEDS: oxyCODONE HCL (*CRX) 5 MG TAB IR PO (09:35)
--- NOTE | 2024-02-04 10:05 | WPDANESPN ---
Anes - Prog Note Post-Op Date/Time: 02/04/24 10:05 Cardiovascular status: normal Respiratory status: normal Airway patency: baseline Mental status: baseline Post-Op hydration status: normal Vital Signs: Last Vital Signs Temp 35.8 C L 02/04/24 08:50 Pulse 54 L 02/04/24 09:45 Resp 17 02/04/24 09:45 BP 148/88 H 02/04/24 09:45 Pulse Ox 98 02/04/24 09:45 O2 Del Method Room Air 02/04/24 09:45 O2 Flow Rate 4 02/04/24 09:05 Pain Score (VAS): 310 I/O: Intake & Output 02/03/24 02/04/24 02/04/24 23:59 07:59 15:59 Intake Total 150 Balance 150 Patient Feedback: Patient satisfied with anesthetic care.
== END 2024-02-04 10:02 | disposition home or self-care (01) ==
PROVIDERS: PCP Emergency Medicine; Visit Provider Anesthesiology Pain Medicine
PROC: (CPT 64628; principal; 2024-02-04 07:30)
DX: M54.51 Vertebrogenic low back pain (principal)
CPT/HCPCS: 64628; 99199

== ENCOUNTER 2025-03-08 08:10 | Outpatient (CLI) | payer MEDICARE, OTHER, SELFPAY ==
--- OUTSIDE RECORDS SUMMARY | 2025-03-08 08:24 | XMS_ITS | Data Portability ---
[facility] [address] [place] [address] Assessment No assessment recorded. Plan of Treatment Reminders Order Date Submit Date Provider Last Modified By Organization Details Last Modified Time Details Appointments None recorded. Lab CBC 2017 018 [facility], [address], [address], [place], [address], 8 09:17:09 CMP, serum or plasma 2017 018 [email or web address] Not available 9 09:55:46 amylase + lipase, serum 2017 018 [email or web address] Not available 9 09:55:46 TSH + free T4, serum 2017 018 [facility], [address], [address], [place], [address], 8 09:17:08 T3, free, serum or plasma 2017 018 [facility], [address] [facility], [address], [place], [address], 8 09:17:10 Referral neurologis t referral - Please call patient to schedule appt. Thank you 2018 019 JUSTIN Jauregui MD (Neurology), [address] [place] [address] [place], [address], 9 11:22:49 gastroente rologist referral 2017 [email or web address] Not available 8 13:15:16 ophthalmol ogist referral - Please call patient to schedule appt. Thank you 2017 dilip Henderson, [address], [place], [address], 9 14:17:07 Procedures None recorded. Surgeries None recorded. Imaging LDCT, chest, for lung cancer screening 2017 [email or web address] Not available 8 12:47:16 Medication Orders levothyrox ine 50 mcg tablet 2017 [id number], [address], [place], [id number], 8 12:39:00 carisoprod ol 350 mg tablet 2017 [facility] #[id number], [address], [place], [id number], 8 12:38:57 Patient TargetsNo targets recorded. Patient InstructionsNo instructions recorded. Reason for Referral Binitrotoluene Operator Referral for Disorder of vision Please call patient to schedule appt. Thank you Referring Physician: Nirmala Valdovinos, Internal Medicine, Encounter Date: 03/24/2018 Online Advertising Director Referral for Abdominal pain Referring Physician: Nirmala Valdovinos, Internal Medicine, Encounter Date: 03/24/2018 Neurologist Referral for Dis order of vision Transient episode of double vision three months ago. Please call patient to schedule appt. Thank you Referring Physician: Nirmala Valdovinos, Internal Medicine, Encounter Date: 05/27/2018 Results Created Date Observation Date Name Description Value Unit Range Abnormal Flag Note LastModifiedBy Organization Detail LastModifiedTime 03/24/20 18 03/25/2018 TSH + free T4, serum TSH 3.500 uIU/m L 0.450- 4.500 Not Available [facility] ([facility]) [address] [facility] [place], [address], 03/25/2018 09:17:08 03/24/20 18 03/25/2018 TSH + free T4, serum T4,free(dire ct) 1.22 NG/dL 0.82-1 .77 Not Available [facility] ([facility]) [address] [facility] [place], [address], 03/25/2018 09:17:08 03/24/20 18 03/25/2018 CBC WBC 10.2 x10e3 /uL 3.4-10 .8 Not Available [facility] ([facility]) [address] [facility] [place], [address], 03/25/2018 09:17:09 03/24/20 18 03/25/2018 CBC RBC 4.94 x10e6 /uL 4.14-5 .80 Not Available [facility] ([facility]) [address] [facility] [place], [address], 03/25/2018 09:17:09 03/24/20 18 03/25/2018 CBC hemoglobin 15.9 g/dL 13.0-1 7.7 Not Available [facility] ([facility]) [address] [facility] [place], [address], 03/25/2018 09:17:09 03/24/20 18 03/25/2018 CBC hematocrit 44.3 % 37.5-5 1.0 Not Available [facility] ([facility]) [address] [facility] [place], [address], 03/25/2018 09:17:09 03/24/20 18 03/25/2018 CBC MCV 90 fL 79-97 Not Available [facility] ([facility]) [address] [facility] [place], [address], 03/25/2018 09:17:09 03/24/20 18 03/25/2018 CBC MCH 32.2 pg 26.6-3 3.0 Not Available [facility] ([facility]) [address] [place], [address], 03/25/2018 09:17:09 03/24/20 18 03/25/2018 CBC MCHC 35.9 g/dL 31.5-3 5.7 above high normal Not Available [facility] ([facility]) [address] [place], [address], 03/25/2018 09:17:09 03/24/20 18 03/25/2018 CBC RDW 13.7 % 12.3-1 5.4 Not Available [facility] ([facility]) [address] [place], [address], 03/25/2018 09:17:09 03/24/20 18 03/25/2018 CBC platelets 220 x10e3 /uL 150-37 9 Not Available [facility] ([facility]) [address] [place], [address], 03/25/2018 09:17:09 03/24/20 18 03/25/2018 CBC NRBC ALGOLOGY TEACHER Not Available [facility] ([facility]) [address] [place], [address], 03/25/2018 09:17:09 03/24/20 18 03/25/2018 T3, free, serum or plasm a triiodothyro nine (T3), free 3.1 pg/mL 2.0-4. 4 Not Available [facility] ([facility]) [address] [place], [address], 03/25/2018 09:17:09 Result Notes None recorded. Problems Name Problem SNOMED Code Status Onset Date Resolution Date Notes Provider Name and Address Organization Details Recorded Time History of atrial fibrillat ion 142892416 Active 2017 treated with ablation ion 2015 Nirmala Valdovinos MD Attn: Gurmeet g,[address], [place], [address], [facility] 8 12:17:53 Disorder of thyroid gland 38377129 Active 2017 Nirmala Valdovinos MD Attn: Gurmeet urbano,[address] [facility], [place], [address], [place] [facility] 8 12:18:27 Low back pain 541139559 Active 2017 Nirmala Valdovinos MD Attn: Gurmeet urbano,[address] [facility], [place], [address], [place] [facility] 8 12:18:43 Neck pain 92634114 Active 2017 Nirmala Valdovinos MD Attn: Gurmeet urbano,[address] [facility], [place], [address], [place] [facility] 8 12:18:56 Abdominal pain 37157743 Active 2017 RLQ/LLQ Nirmala Valdovinos MD Attn: Gurmeet urbano,[address] [facility], [place], [address], [place] [facility] 8 12:19:25 Tobacco dependenc e syndrome 66581877 Active 2017 Nirmala Valdovinos MD Attn: Gurmeet urbano,[address] [facility], [place], [address], [place] [facility] 8 12:33:27 Disorder of vision 08595007 Active 2017 Nirmala Valdovinos MD Attn: Gurmeet urbano,[address] [facility], [place], [address], [place] [facility] 8 12:36:26 Blood-tin ged feces 437594430238 102 Active 2018 Nirmala Valdovinos MD Attn: Gurmeet urbano,[address] [facility], [place], [address], [place] [facility] 9 11:43:14 Problem Notes None recorded. Medical Equipment None Reported. Allergies Allergen ID Allergen Name Allergen Category Reaction Reaction Severity Criticality Documentation Date Start Date Code Code System Note Provider Name and Address Organization Details Recorded Time 112022 Iodinated contrast media (substanc e) medicatio n Not available Not available Not available 03/24/2018 42134 2004 [facility] 8 11:42:58 Medications Name Sig Start Date Stop Date Status Note LastModified by Organization Details LastModified Time carisoprodol 350 mg tablet TAKE 1 TABLET(S) TWICE A DAY BY ORAL ROUTE NEEDED. active Not Available Not Available No t Available levothyroxine 50 mcg tablet Take 1 tablet every day by oral route. active Not Available Not Available No t Available bisacodyl 5 mg tablet,delayed release Take as single dose at 9:00 PM 2018 active Not Available Not Available Not Avai lable polyethylene glycol 3350 17 gram/dose oral powder Mix with one gallon clear liquid. Drink one glassful every 15-20 mins until half gone. Start at 5:00PM on day before test. Repeat same at 9:00 PM active Not Available Not Available No t Available Vitals Date Recorded Body height Body mass index (BMI) Body weight Oxygen saturation Heart rate Body temperature Systolic And Diastolic Provider Name and Address Organization Details Last Updated DateTime 9 182.88 cm 25.4 kg/m2 23062.7 7 g 92 % 78 /min 98 [degF] 110/80 mm[Hg] Reina Encarnacion MA [facility] 9 17:40:28 Date Recorded Body height Body mass index (BMI) Body weight Body temperature Oxygen saturation Heart rate Systolic And Diastolic Provider Name and Address Organization Details Last Updated DateTime 8 182.88 cm 25.5 kg/m2 63379.3 7 g 98.1 [degF] 96 % 73 /min 134/90 mm[Hg] Reina Encarnacion MA [facility] 8 11:47:42 Social History Question Answer Notes LastModified by Organizat ion Details LastModified Time Tobacco Smoking Status Current Every Day [facility] 03/24/2018 11:43:58 What Was The Date Of Your Most Recent Tobacco Screening? 05/27/2018 Information n ot available 10/30/2018 How Much Tobacco Do You Smoke? 1 PPD Information not available 03/24/2018 How Many Years Have You Smoked Tobacco? 40 Information not available 03/24/2018 Sex: Unknown Functional Status None recorded. Mental Status None recorded. Family History Relationship Description Onset Age of this Age Resolved Age Notes LastModified by Organization Details LastModified Time Mother Leukemia in 1995 [email or web address] Not available 03/24/2018 11:43:54 Medical History Condition Response Muscle, Joint, or Bone Problems Y Headaches Y Thyroid Problems Y Past Encounters Encounter ID Performer Location Encounter Start Date Encounter Closed Date Diagnosis/Indication Diagnosis SNOMED-CT Code Diagnosis ICD10 Code Diagnosis IMO Codes Diagnosis Note [id number] MD Stephen Mcdonald (Adult Med) [address] [place] [address] 03/24/2018 10:53:16 03/24/2018 12:47:16 Disorder of thyroid gland 91243025 E07.9 Abdominal pain 54211604 R10.9 Low back pain 296188194 M54.5 Neck pain 50365936 M54.2 History of atrial fibrillation 232920498 Z86.79 Tobacco de pendence syndrome 12572215 F17.200 Disorder of vision 40822 002 H53.9 [id number] Nirmala Valdovinos MD [facility] (Adult Med) [address] [place] [phone] 05/27/2018 16:58:21 05/28/2018 12:48:42 Disorder of vision 39446952 H53.9 Neck pain 28187938 M54.2 Low back pain 415969182 M54.5 Disorder o f thyroid gland 27899124 E07.9 History of atrial fibrillation 718837653 Z86.79 Health Concerns Section Related Observation LastModified by Organization Detai ls LastModified Time None Recorded Concern Status LastModified by Organization Details LastModified Time None Recorded Advance Directives Directive None Recorded Payers Insurance Date Sequence Insurance Name Policy Number Policy Ortiz Covered Member ID Ortiz Member ID Guarantor Name 05/27/2018 1 [place] [id number] Isaac Mcallister [id number] [id number] Antonio Mcallister 05/27/2018 1 [employer] - ALLIED BENEFITS - OPEN ACCESS [id number] Yvonne Mcallister [id number] Antonio Mcallister Notes Date Note Type Note Provider Name and Address Organization Details Recorded Time 03/24/2018 text/html New patient visit. Has history of low back pain and thyroid disorder. Recently had episode of double vision lasting about 40m secs Reina Encarnacion MA [facility], [place] - [facility] 03/25/2018 14:38:01 05/27/2018 text/html No new complaints at present. Wants to be seen by neurology for past visual disorder. Nirmala Valdovinos MD Attn: Accounting,[address] [facility], [place], [address], [facility] 05/27/2018 18:04:07
--- OUTSIDE RECORDS SUMMARY | 2025-03-08 08:24 | XMS_ITS | Clinical Summary ---
Author Organization [facility] Address [address] [place] [address] Phone Care Team Providers Care Shale Processing Technician Name Role Phone Kapil Reyes Primary Care Provider [phone] Allergies No known active allergies Medications levothyroxine (SYNTHROID) 75 MCG Tablet Take 75 mcg by mouth daily. Active aspirin EC (ECOTRIN) 325 MG Tablet Delayed Response Take 325 mg by mouth daily. Active meclizine (ANTIVERT) 25 MG Tablet Take 1 Tab by mouth 3 times daily as needed for Dizziness. 90 Tab 0 07/22/2016 Active ondansetron (ZOFRAN-ODT) 4 MG TABLET DISPERSIBLE Take 1 Tab by mouth every 8 hours as needed for Nausea. 15 Tab 0 07/22/2016 Active Active Problems Problem Noted Date Diagnosed Date Dizziness 07/21/2016 Gastroenteritis 07/21/2016 Nausea & vomiting 07/21/2016 Dehydration 07/21/2016 Benign paroxysmal positional vertigo 07/21/2016 Smoker 07/21/2016 Social History Tobacco Use Types Packs/Day Years Used Date Smoking Tobacco: Every Day Cigarettes Alcohol Use Standard Drinks/Week Comments No 0 (1 standard drink = 0.6 oz pur e alcohol) Sex and Gender Information Value Date Recorded Sex Assigned at Not on file Legal Sex Male 8:25 AM CDT Gender Identity Not on file Sexual Orientation Not on file Last Filed Vital Signs Vital Sign Reading Time Taken Comments Blood Pressure 115/78 07/22/2016 9:32 AM CDT Pulse 79 07/22/2016 9:32 AM CDT Temperature 36.1 C (96.9 F) 07/22/2016 6:34 AM CDT Respiratory Rate 20 07/22/2016 9:32 AM CDT Oxygen Saturation 96% 07/21/2016 2:15 PM CDT Inhaled Oxygen Concentration - - Weight 83.3 kg (183 lb 9.6 oz) 07/21/2016 2:25 P M CDT Height 182.9 cm (6') 07/21/2016 8:30 AM CDT Body Mass Index 24.9 07/21/2016 8:30 AM CDT Plan of Treatment Health Maintenance Due Date Last Done Comments Hepatitis C Virus (HCV) Screening 1960 TdaP Immunization 1960 Cologuard 2003 Colonoscopy 2003 Colorectal Cancer Screening 2003 Immunochemical Fecal Occult Blood 2003 Pneumococcal Immunization (5 0+ years) (1 of 1 - PCV) 2008 Zoster Immunization (1 of 2) 2008 Influenza Immunization (#1) 2024 SARS-COV-2 Immunization ( - 2023- season) 2024 Respiratory Syncytial Virus (RSV) Immunization (Adult) (1 - 1-dose 75+ series) 2033 Hepatitis B Immunization Aged Out No longer eligible based on patient's age to complete this topic Human Papillomavirus (HPV) Immunization Aged Out No longer eligible b ased on patient's age to complete this topic Meningococcal Immunization (ACWY) Aged Out No longer eligible based on patient's age to complete this topic Rotavirus Immunization Aged Out No lo nger eligible based on patient's age to complete this topic Advance Directives * Full Code (Latest Code Status on File) Date Activated Date Inactivated Comments 07/21/2016 4:43 PM 07/22/2016 5:06 PM CPR-Full Josh atment: FULL ARREST: Attempt Resuscitation/CPR wit intubation and mechanical ventilation. PRE-ARREST: Use entire range of life support measures to stabilize the patient. * Full Code Date Activated Date Inactivated Comments 07/21/2016 3:40 PM 07/21/2016 4:43 PM CPR-Full Josh atment: FULL ARREST: Attempt Resuscitation/CPR wit intubation and mechanical ventilation. PRE-ARREST: Use entire range of life support measures to stabilize the patient. Care Teams Shale Processing Technician Relationship Specialty Start Date End Date Kapil Reyes [address] [place] [address] PCP - General Family Medicine 07/21/16
--- OUTSIDE RECORDS SUMMARY | 2025-03-08 08:24 | XMS_ITS | Clinical Summary ---
Author Organization [facility] Address [address] [place] [address] Phone Care Team Providers Care Laundromat Worker Name Role Phone Kapil Reyes MD Primary Care Provider [phone] Allergies Active Allergy Reactions Criticality Noted Date Comments Iodinated Contrast Media Hives,Dizziness High 2015 Medications magnesium oxide (MAG-OX) 400 mg tablet Take 400 mg by mouth daily. Active diltiazem (CARDIZEM) 60 mg tablet Take 60 mg by mouth 3 times daily . Active levothyroxine 50 mcg tablet Take 50 mcg by mouth daily director of early childhood. Active amiodarone (CORDARONE) 200 mg tablet Take 200 mg by mouth daily. Active HYDROcodone-acet aminophen (NORCO) 7.5-325 mg Tablet Take 1 Tablet by mouth every 4 hours as needed for Pain, Moderate. Max Daily Amount: 6 Tablet 15 Tablet 0 10/28/2015 Active Active Problems Problem Noted Date Diagnosed Date Open wound of right lower extremity 10/25/2015 Cellulitis of right leg 10/25/2015 Atrial fibrillation 10/25/2015 Leg hematoma 10/14/2015 Leg abrasion Shoulder abrasion Traumatic hematoma of right lower leg Leg wound, right Hypothyroidism Paroxysmal atrial fibrillation Immunizations Immunization Administration Dates Next Due (ADACEL/BOOSTRIX)(10 YR UP) TDAP VACCINE, 0.5ML, IM 10/26/2015 Family History Medical History Relation Name Comments Heart Disease Father valve disease Heart Disease Sister afib Heart Disease Son wpw Relation Name Status Comments Father Sister Son Social History Tobacco Use Types Packs/Day Years Used Date Smoking Tobacco: Former Cigarettes 1.5 40 Smokeless Tobacco: Former Quit: 08/18/2015 Alcohol Use Standard Drinks/Week Comments No 0 (1 standard drink = 0.6 oz pur e alcohol) former drinker Sex and Gender Information Value Date Recorded Sex Assigned at Not on file Legal Sex Male 10:51 AM CDT Gender Identity Not on file Sexual Orientation Not on file Last Filed Vital Signs Vital Sign Reading Time Taken Comments Blood Pressure 132/70 12/23/2015 8:06 AM CDT Pulse 86 12/23/2015 8:06 AM CDT Temperature 36.2 C (97.1 F) 12/23/2015 8:06 AM CDT Respiratory Rate 18 12/23/2015 8:06 AM CDT Oxygen Saturation 98% 10/28/2015 8:03 AM CDT Inhaled Oxygen Concentration - - Weight 83.9 kg (185 lb) 11/29/2015 11:18 AM CDT Height 182.9 cm (6') 11/14/2015 10:00 AM CDT Body Mass Index 25.09 11/14/2015 10:00 AM CDT Plan of Treatment Health Maintenance Due Date Last Done Comments COLORECTAL SCREENING 2003 Colorectal Cancer Screening 2003 FIT-DNA Q 3 years 2003 FIT/FOBT Q 1 year 2003 Flex Sig/CT Colonography Q 5 years 2003 PNEUMOCOCCAL VACCINE 50+ YEARS (1 of 1 - PCV) 04/12/19 09 ZOSTER VACCINE (1 of 2) 2008 INFLUENZA VACCINE (#1) 2024 DTAP/TDAP/TD VACCINES (2 - Td or Tdap) 10/25/2025 RSV VACCINE (60+ or ) (1 - 1-dose 75+ series) 2033 Advance Directives For more information, please contact: [phone] * Full Code (Latest Code Status on File) Date Activated Date Inactivated Comments 10/25/2015 10:45 PM 10/28/2015 5:06 PM * Full Code Date Activated Date Inactivated Comments 10/14/2015 5:50 PM 10/15/2015 2:26 PM Care Teams Laundromat Worker Relationship Specialty Start Date End Date Kapil Reyes MD PCP - General Family Practice 10/14/15
--- OUTSIDE RECORDS SUMMARY | 2025-03-08 08:24 | XMS_ITS | Encounter Summary ---
Author Organization [facility] Address [facility] [place] [address] Care Team Providers Care Candle Extrusion Machine Operator Name Role Phone Kapil Reyes MD Primary Care Provider [phone] Melanie Jiang MD Unavailable Encounter Details Date Type Department Care Team (Late st Contact Info) Description 02/23/2016 Abstract [facility] AT [address] [address] Franck Mccartney MA Social History Tobacco Use Types Packs/Day Years Used Date Smoking Tobacco: Former Cigarettes Q uit: 08/12/2015 Alcohol Use Standard Drinks/Week Comments No 0 (1 standard drink = 0.6 oz pur e alcohol) Sex and Gender Information Value Date Recorded Sex Assigned at Not on file Legal Sex Male 1:47 PM CDT Gender Identity Not on file Sexual Orientation Not on file documented as of this encounter Plan of Treatment Not on file documented as of this encounter Procedures Procedure Name Priority Date/Time Associated Diagnosis Comments PROTIME (OUTSIDE LAB) Routine 03/27/2016 PROTIME (OUTSIDE LAB) Routine 03/05/2016 PROTIME (OUTSIDE LAB) Routine 02/27/2016 PROTIME (OUTSIDE LAB) Routine 02/22/2016 documented in this encounter Results * PROTIME (OUTSIDE LAB) (03/27/2016) PROTIME 13.3 INR 1.3 03/27/2016 [facility] Abstract LAB-OUTSIDE/ABSTRACTED Final Result * PROTIME (OUTSIDE LAB) (03/05/2016) PROTIME 23.7 INR 2.3 03/05/2016 us Doc [facility] Abstract LAB-OUTSIDE/ABSTRACTED Final Result * PROTIME (OUTSIDE LAB) (02/27/2016) PROTIME 36.8 INR 3.5 02/27/2016 us Doc [facility] Abstract LAB-OUTSIDE/ABSTRACTED Final Result * PROTIME (OUTSIDE LAB) (02/22/2016) PROTIME 14.6 INR 1.4 02/22/2016 us Doc [facility] Abstract LAB-OUTSIDE/ABSTRACTED Final Result documented in this encounter Visit Diagnoses Not on filedocumented in this encounter Care Teams Candle Extrusion Machine Operator Relationship Specialty Start Date End Date Kapil Reyes MD PCP - General FAMILY PRACTICE 10/24/15 Melanie Jiang MD EP Skein Inspector CARDIOVASCULAR DISEASE 09/07/15 documented as of this encounter
--- OUTSIDE RECORDS SUMMARY | 2025-03-08 08:24 | XMS_ITS | Clinical Summary ---
Author Organization [facility] Address [address] [place] [address] Care Team Providers Care Gusset Edger Name Role Phone Kapil Reyes MD Primary Care Provider [phone] Melanie Jiang MD Unavailable Allergies Active Allergy Reactions Criticality Noted Date Comments Iodine Dizziness,Vomiting,Hives Medium 11/07/2015 Medications levothyroxine 50 MCG tablet Take 1 tablet (50 mcg total) by mouth daily. 30 tablet 08/09/2016 Active aspirin 325 MG tablet Take 1 tablet (325 mg total) by mouth daily. 2017 Active Active Problems Problem Noted Date Diagnosed Date Hyperthyroidism A-fib Family History Medical History Relation Comments Heart Father valve disease OR Sister 1 Afib-Ablation Heart Son WPW Relation Status Comments Father Alive Sister 1 Alive Sister 2 Alive Son Alive Social History Tobacco Use Types Packs/Day Years [...] Sign Reading Time Taken Comments Blood Pressure 132/92 04/23/2017 8:20 AM ROLLER LEVELER Pulse 64 04/23/2017 8:20 AM ROLLER LEVELER Temperature 36.3 C (97.4 F) 04/23/2017 7:38 AM ROLLER LEVELER Respiratory Rate 16 04/23/2017 8:20 AM ROLLER LEVELER Oxygen Saturation 95% 04/23/2017 8:20 AM ROLLER LEVELER Inhaled Oxygen Concentration - - Weight 82.4 kg (181 lb 10.5 oz) 04/23/2017 7:38 AM ROLLER LEVELER Height 182.9 cm (6') 04/23/2017 7:38 AM ROLLER LEVELER Body Mass Index 24.64 04/23/2017 7:38 AM ROLLER LEVELER Plan of Treatment Health Maintenance Due Date Last Done Comments Colorectal Cancer Screening Colonoscopy (10 Years) 1958 Hepatitis C 1976 Pneumococcal Vaccine: 50+ Ye ars (1 of 1 - PCV) 2008 Zoster Vaccines (1 of 2) 2008 COVID-19 Vaccine (1 - 2024-2 6 season) 2024 Influenza Adult (#1) 2025 DTaP, Tdap and Td Vaccines ( 2 - Td or Tdap) 10/25/2025 10/26/2015 RSV Immunization or 60+ Years (1 - 1-dose 75+ series) 2033 Hepatitis A Vaccines Aged Out No long er eligible based on patient's age to complete this topic Meningococcal B Vaccine Aged Out No l onger eligible based on patient's age to complete this topic Meningococcal Vaccine Aged Out No bogdan kathi eligible based on patient's age to complete this topic RSV Immunizations Under 20 Months Aged Out No longer eligible based on patient's age to complete this topic Medical Devices Implanted Type Area Digital Ad Trafficker Device Identifier Shelf Expiration Date Model / Serial / Lot Medtronic Implantable Loop Recorder- [id number] Implanted:06/30 (Quantity not on file) Explanted:04/23 by Melanie Jiang MD (Quantity not on file) Implantable Loop Recorder [employer] [id number] / [id number] / Insurance [employer] Care Teams Gusset Edger Relationship Specialty Start Date End Date Kapil Reyes MD PCP - General FAMILY PRACTICE 10/24/15 Melanie Jiang MD EP Manager Editorial CARDIOVASCULAR DISEASE 09/07/15
[2025-03-08 09:03] LABS: Alanine Aminotransferase 36 U/L (6-50); Albumin Level 4.2 g/dL (3.5-5.1); Alkaline Phosphatase 73 U/L (38-126); Anion Gap 3 mmol/L (4-12); Aspartate Amino Transferase 40 U/L (17-59); Bilirubin,Total 0.5 mg/dL (0.2-1.3); Blood Urea Nitrogen 19 mg/dL (9-20); Calcium 9.0 mg/dL (8.4-10.2); Carbon Dioxide 28 mmol/L (22-30); Chloride 108 mmol/L (98-107); Cholesterol 208 mg/dL (0-200); Estimated Glomerular Filt Rate > 60; Glucose 100 mg/dL (65-110); HDL Direct 54 mg/dL; Potassium 4.5 mmol/L (3.4-5.0); Sodium 139 mmol/L (137-145); Total Protein 6.8 g/dL (6.3-8.2); Triglycerides 70 mg/dL (<150)
[2025-03-08 09:38] LABS: Prostate Specific Antigen 1.3 ng/mL (< OR = 4.0)
== END 2025-03-08 08:11 | disposition home or self-care (01) ==
LOC: ANHLAB 08:14
PROVIDERS: PCP Emergency Medicine; Visit Provider Emergency Medicine
DX: E55.9 Vitamin D deficiency, unspecified (principal); E78.5 Hyperlipidemia, unspecified; Z12.5 Encounter for screening for malignant neoplasm of prostate
CPT/HCPCS: 36415; 80053; 80061; 82306; 84153; G0103